=== PATIENT | female | born 1990 | race Caucasian/White ===

== ENCOUNTER 2016-10-22 13:00 | Outpatient (CLI) | payer MEDICAID ==
[~2016-10-22] VITALS: Ht 160 cm; Wt 78.0 kg
[2016-11-07] MEDS ORDERED: PRENATAL VIT1 TAB PO (14:03)
[2016-11-07] MEDS ORDERED: NIPPLECREAM TP (14:04)
[2016-11-07] MEDS ORDERED: MOTRIN-DPS800 MG PO (14:04)
[2016-11-07] MEDS ORDERED: ZANTAC DPS150 MG PO (14:04)
[2016-11-07] MEDS ORDERED: TYLENOL #3 DPS1 TAB PO (14:04)
== END 2016-10-22 14:28 | disposition home or self-care (01) ==
LOC: BC 13:00 → 2LDRP 13:00 → BC 14:28 → 2LDRP 14:28 → BC 11-01 08:00
DX: O42.92 Full-term premature rupture of membranes, unspecified as to length of time between rupture and onset of labor (principal); Z3A.38 38 weeks gestation of pregnancy

== ENCOUNTER 2016-11-05 07:15 | Inpatient (IN) | payer MEDICAID ==
[~2016-11-05] VITALS: Ht 160 cm; Wt 77.9 kg
--- NOTE | ~2016-11-05 | FD ---
ADMIT: 11/05/2016 RM/LOC: 229 [facility] MR#: [id number] [address] [address] RODOLFO DEMPSEY [address] [place] [id number] Final Diagnosis SEX: F AGE: 26 : 1990 ADMISSION DATE: 11/05/2016 DISCHARGE DATE: 11/06/2016 PRINCIPAL DIAGNOSIS: Term intrauterine . REASON FOR HOSPITALIZATION: The patient is a 26-year-old white female, 4, para 3-0-0-3, who presented at 40 and 1/2 weeks' estimated gestational age in active labor. OPERATIVE PROCEDURES: The patient underwent a spontaneous vaginal delivery on 11/05/2016. HOSPITAL COURSE: The patient was admitted in active labor, underwent an uncomplicated labor and subsequent spontaneous vaginal delivery. She did well through the initial day. By the morning of day #1, she was doing well, tolerating a regular diet, experiencing good pain control with oral pain medications. By the morning of day #1, she was tolerating a regular diet, experiencing good pain control with oral pain medications, ambulating without difficulty and using the bathroom without any problems. She was dismissed to home on day #1 on the following medications; Motrin 800 mg 1 tab p.o. q.8 hours p.r.n. and Tylenol #3 one to two tabs p.o. q.4 to 6 hours p.r.n. She was instructed to follow up in the clinic again in 6 weeks' time or sooner as needed for any problems. Robbie Porter MD/ yara JOB #: [id number] CC: Robbie Porter MD, Attending Physician Robbie Porter MD, Family Physician
[2016-11-07] MEDS ORDERED: PRENATAL VIT1 TAB PO (14:03)
[2016-11-07] MEDS ORDERED: MOTRIN-DPS800 MG PO (14:04)
[2016-11-07] MEDS ORDERED: TYLENOL #3 DPS1 TAB PO (14:04)
[2016-11-07] MEDS ORDERED: NIPPLECREAM TP (14:04)
[2016-11-07] MEDS ORDERED: ZANTAC DPS150 MG PO (14:04)
--- NOTE | 2016-12-10 08:28 | OR ---
ADMIT: 11/05/2016 RM/LOC: 229 [facility] MR#: [id number] [address] [address] RODOLFO DEMPSEY [address] [place] [id number] Operative/Delivery Room Report SEX: F AGE: 26 : 1990 SURGERY DATE: 11/05/2016 SURGEON: Robbie Porter MD PRINCIPAL DIAGNOSES: 1. . 2. Status post epidural placement for pain control during labor. PROCEDURE: Removal of previously placed epidural catheter. INDICATION: The patient is a 26-year-old white female, 4, para 3, who presented at term in active labor, underwent an uncomplicated spontaneous vaginal delivery with epidural for pain control. DESCRIPTION OF PROCEDURE: The patient was placed in the sitting position. Stabilizing tape was removed, and the epidural catheter was then removed without difficulty with epidural tip intact. Epidural site was then dressed with a Band-Aid. The patient tolerated the procedure well. Robbie Porter MD/ yara JOB #: [id number] CC: Robbie Porter, Attending Physician UNKNOWN, Family Physician
--- NOTE | 2016-12-10 08:28 | OR ---
ADMIT: 11/05/2016 RM/LOC: 229 [facility] MR#: [id number] [id number] [facility] [address] [place] [id number] RODOLFO DEMPSEY [address] [address] Operative/Delivery Room Report SEX: F AGE: 26 : 1990 SURGERY DATE: 11/05/2016 SURGEON: Robbie Porter MD PRINCIPAL DIAGNOSES: 1. Term intrauterine . 2. Spontaneous labor. POSTOPERATIVE DIAGNOSES: 1. Term intrauterine . 2. Spontaneous labor. PROCEDURE: Spontaneous vaginal delivery. INDICATION: The patient is a 26-year-old white female, 4, para 3-0-0- 3, who presented at 40 and 1/2 weeks' estimated gestational age in active labor progressed through labor in a satisfactory fashion to complete. ANESTHESIA: Epidural. ESTIMATED BLOOD LOSS: 250 mL. COMPLICATIONS: None. FINDINGS: Viable male infant, 8 pounds 9 ounces with scores of 8 at 1 and 9 at 5 minutes, delivered in left occiput anterior presentation. DESCRIPTION OF PROCEDURE: When the patient was noted to be complete and pushing, she was prepped and draped in the usual fashion in dorsal lithotomy position. 's head was allowed to deliver over an intact perineum. After restitution of the head, the mouth and nose were cleared. Neck was examined for nuchal cord and none was noted. The anterior followed by the posterior shoulders were delivered, followed by expulsion of the remainder of the . Cord was then clamped x2, cut, and the was placed on the maternal stomach in the care of nursing staff. Placenta was then delivered intact with normal appearance. The uterine cervix was visualized and noted to be without lacerations or tears. Attention was then turned to the perineum. She was noted to have a small first-degree midline perineal laceration. This was reapproximated with a single subcutaneous stitch of 4-0 chromic. The patient tolerated the procedure well was taken recovery room in stable condition. All sponge, instrument, and needle counts were correct. Robbie Porter MD/ yara JOB #: [id number] CC: Robbie Porter, Attending Physician ADMIT: 11/05/2016 RM/LOC: 229 [facility] MR#: [id number] [address] [id number] RODOLFO DEMPSEY [address] [place] [address] Operative/Delivery Room Report SEX: F AGE: 26 : 1990 UNKNOWN, [facility] Physician
--- NOTE | 2017-01-16 09:58 | HP ---
ADMIT: 11/05/2016 RM/LOC: 229 [facility] MR#: [id number] [id number] [facility] [address] [place] [phone] RODOLFO DEMPSEY [facility] [place] [address] History and Physical SEX: F AGE: 26 : 1990 DATE OF SERVICE: PRINCIPAL DIAGNOSIS: Term intrauterine . HISTORY OF PRESENT ILLNESS: The patient is a 26-year-old white female, 4, para 3-0-0-3, who presented at 40 and 1/2 weeks' estimated gestational age in active labor. PREVIOUS MEDICAL HISTORY: The patient denied any significant previous medical history. ALLERGIES: SHE HAS AN INTOLERANCE TO VAGISIL AND ALLERGY TO SULFA. FAMILY HISTORY: Significant for hypertension; thyroid dysfunction; lung, breast, and thyroid cancers; and seizure disorder. SOCIAL HISTORY: She does not smoke, drinks socially outside of . Denies any history of drug use. PHYSICAL EXAMINATION: GENERAL: The patient is a well-developed, well- nourished, thin, white female, alert and oriented, in no apparent distress with normal stream of thought and content of speech. HEART: Regular rate and rhythm without murmurs, rubs, or gallops. LUNGS: Clear to auscultation bilaterally. ABDOMEN: Soft with positive bowel sounds. Gravid. heart tones in the 130s with moderate variability and accelerations present. Uterine contractions every 2 to 5 minutes. Cervix on presentation was 6 cm dilated, 100% effaced, and 0 station. ASSESSMENT: Term intrauterine in active labor. We will anticipate a spontaneous vaginal delivery. Robbie Porter MD/ yara JOB #: [id number] CC: Robbie Porter MD, Attending Physician Robbie Porter MD, Family Physician
== END 2016-11-06 15:00 | disposition home or self-care (01) | DRG 775 ==
LOC: BC 07:15 → 2LDRP 07:15 → BC 07:24 → 2LDRP 07:29
PROVIDERS: ADMIT Obstetrics & Gynecology
PROC: 3E0234Z Introduction of Serum, Toxoid and Vaccine into Muscle, Percutaneous Approach (ICD-10-PCS; principal; 2016-11-05)
PROC: 10E0XZZ Delivery of Products of Conception, External Approach (ICD-10-PCS; principal; 2016-11-05)
PROC: 0HQ9XZZ Repair Perineum Skin, External Approach (ICD-10-PCS; principal; 2016-11-05)
DX: O48.0 Post-term pregnancy (principal); O75.89 Other specified complications of labor and delivery; O70.0 First degree perineal laceration during delivery; Z3A.40 40 weeks gestation of pregnancy; Z37.0 Single live birth